=== PATIENT | male | born 1950 | race Caucasian/White ===

== ENCOUNTER 2016-09-04 07:56 | Outpatient (CLI) | payer MEDICARE, OTHER ==
[~2016-09-04] VITALS: Ht 170.2 cm; Wt 86.2 kg
[~2016-09-04 07:56] MED LIST: ADULT LOW DOSE81 MG PO; BETAPACE80 MG PO; COUMADIN 5MG TAB5 MG PO; GLUCOPHAGE 500500 MG PO; HYDROCHLOROTHIA25 MG PO; ISOSORBIDE MONO30 MG PO; LISINOPRIL20 MG PO; NITROSTAT0.4 MG SL; NORVASC 5 MG TAB5 MG PO; PLAVIX 75 MG TA75 MG PO; PRAVACHOL40 MG PO; PRILOSEC OTC20 MG PO; VITAMIN B COMP1 EACH PO; VITAMIN D350000 UNIT PO
[2016-09-04 08:43] LABS: HEMOGLOBIN 14.8 gm/dl (14.0-17.5); RED BLOOD COUNT 4.79 M/UL (4.20-5.50); WHITE BLOOD COUNT 8.3 K/UL (4.5-11.0)
[2016-09-04 09:00] LABS: BUN/CREATININE RATIO 21 (0-10)
[2016-09-04] MEDS ORDERED: VENTOLIN HFA 66.7 GM INH (09:41)
[2016-09-04] MEDS ORDERED: COUMADIN2.5 MG PO (10:02)
[2016-09-04] MEDS ORDERED: COUMADIN1 MG PO (10:03)
[2016-09-04] MEDS ORDERED: KENALOG CREAM 015 GM EXT (10:04)
[2016-09-04] MEDS ORDERED: VENTOLIN HFA (10:05)
[2016-09-05 04:34] LABS: HEMOGLOBIN 13.5 gm/dl (14.0-17.5); RED BLOOD COUNT 4.38 M/UL (4.20-5.50); WHITE BLOOD COUNT 8.3 K/UL (4.5-11.0)
[2016-09-05 04:49] LABS: BUN/CREATININE RATIO 18 (0-10)
[2016-09-05] MEDS ORDERED: PLAVIX 75 MG TA75 MG PO (10:02)
== END 2016-09-05 11:02 | disposition home or self-care (01) ==
LOC: CATH 07:56 → PROG CARE 15:11 → CATH 09-05 11:02
PROVIDERS: Internal Medicine Cardiovascular Disease
DX: I70.211 Atherosclerosis of native arteries of extremities with intermittent claudication, right leg (principal); E78.5 Hyperlipidemia, unspecified; I10 Essential (primary) hypertension; E11.65 Type 2 diabetes mellitus with hyperglycemia; I48.0 Paroxysmal atrial fibrillation; I49.5 Sick sinus syndrome; Z79.82 Long term (current) use of aspirin; Z87.891 Personal history of nicotine dependence; Z79.02 Long term (current) use of antithrombotics/antiplatelets; Z79.84 Long term (current) use of oral hypoglycemic drugs; Z79.899 Other long term (current) drug therapy; Z86.711 Personal history of pulmonary embolism; Z86.718 Personal history of other venous thrombosis and embolism
CPT/HCPCS: 36245; 36415; 75630; 80048; 82962; 85025; 85027; 85347; 85610; 85730; C1725; C1757; C1769; C1876; C2623; J1644; J2250; J3010; J7030; Q0163; Q9965

== ENCOUNTER → 2022-01-11 | Outpatient (CLI) | payer MEDICARE, OTHER ==
[~2022-01-11] MED LIST changes: +COUMADIN1 MG PO; +COUMADIN2.5 MG PO; +KENALOG CREAM 015 GM EXT; +VENTOLIN HFA; +VENTOLIN HFA 66.7 GM INH
== END ==
LOC: HEART 5 09:30
DX: I48.0 Paroxysmal atrial fibrillation (principal); R06.02 Shortness of breath; I08.3 Combined rheumatic disorders of mitral, aortic and tricuspid valves; I27.20 Pulmonary hypertension, unspecified
CPT/HCPCS: 93306